=== PATIENT | male | born 1940 | race Asian ===

== ENCOUNTER 2019-01-04 05:28 | Emergency (ER) | payer OTHER ==
[~2019-01-04] VITALS: Ht 177.8 cm; Wt 77.1 kg
[2019-01-04 05:36] VITALS: Ht 177.8 cm; Wt 77.1 kg
[2019-01-04 07:27] VITALS: BP 137/97
== END 2019-01-04 07:28 | disposition home or self-care (01) ==
LOC: ED 05:28
DX: S72.112A Displaced fracture of greater trochanter of left femur, initial encounter for closed fracture (principal); E11.9 Type 2 diabetes mellitus without complications; E78.00 Pure hypercholesterolemia, unspecified; Z86.73 Personal history of transient ischemic attack (TIA), and cerebral infarction without residual deficits; W18.39XA Other fall on same level, initial encounter; Y93.89 Activity, other specified; Y92.89 Other specified places as the place of occurrence of the external cause; Y99.8 Other external cause status
CPT/HCPCS: G0500; J2405; J3490; J7030; Q0092